=== PATIENT | female | born 1970 | race African-American/Black ===

== ENCOUNTER 2016-07-23 17:34 | Emergency (ER) | payer MEDICAID ==
[2016-07-23 20:57] LABS: APPEARANCE CLEAR (CLEAR); BILIRUBIN NEGATIVE (NEGATIVE); COLOR YELLOW (YELLOW); GLUCOSE 1000 mg/dL (NEGATIVE); KETONE MODERATE mg/dL (NEGATIVE); LEUKOCYTE ESTERASE NEGATIVE (NEGATIVE); NITRITE NEGATIVE (NEGATIVE); PROTEIN NEGATIVE (NEGATIVE); SPECIFIC GRAVITY 1.015 (1.005-1.020); UROBILINOGEN NORMAL (NORMAL)
== END 2016-07-23 22:13 | disposition home or self-care (01) ==
LOC: D.ER 17:34
PROVIDERS: Nurse Practitioner Acute Care
DX: G89.29 Other chronic pain (principal); E11.65 Type 2 diabetes mellitus with hyperglycemia; I10 Essential (primary) hypertension; F17.200 Nicotine dependence, unspecified, uncomplicated

== ENCOUNTER 2016-10-24 05:21 | Emergency (ER) | payer MEDICARE, MEDICAID ==
[2016-10-24 06:19] LABS: BASOPHILS 0.4 % (0-2); EOSINOPHILS 1.1 % (0-7); HEMATOCRIT 45.9 % (36.0-48.0); HEMOGLOBIN 16.1 g/dL (12-16); LYMPHOCYTES 50.5 % (15-50); MCH 30.6 pg (26.0-34.0); MCHC 35.1 g/dL (31.0-37.0); MCV 87.1 fL (80.0-100.0); MEAN PLATELET VOLUME 10.8 fL (7.4-10.4); MONOCYTES 6.4 % (2-11); NEUTROPHILS 41.6 % (40-80); PLATELET COUNT 248 10x3/uL (130-400); RBC 5.27 10x6/uL (4.00-5.40); RDW 12.6 % (11.5-14.5); WBC 5.6 10x3/uL (4.8-10.8)
[2016-10-24 06:31] LABS: KETONE - SERUM NEGATIVE (NEGATIVE)
[2016-10-24 06:40] LABS: ALBUMIN 3.5 g/dL (3.4-5.0); ALKALINE PHOSPHATASE 183 U/L (46-116); ALT (SGPT) 20 U/L (10-68); CALC OSMOLALITY 287 mosm/kg (275-300); CALCIUM 9.7 mg/dL (8.5-10.1); CARBON DIOXIDE 26.6 mmol/L (21.0-32.0); CHLORIDE - SERUM 103 mmol/L (98-107); CREATININE - SERUM 0.8 mg/dL (0.6-1.3); MAGNESIUM - SERUM 1.6 mg/dL (1.8-2.4); POTASSIUM - SERUM 4.1 mmol/L (3.5-5.1); PROTEIN - SERUM 7.3 g/dL (6.4-8.2); SODIUM 138 mmol/L (136-145); UREA NITROGEN 11 mg/dL (7-18); eGFR NON AFRICAN AMERICAN 82 mL/min (90-120)
[2016-10-24 06:41] LABS: GLUCOSE 340 mg/dL (74-106)
== END 2016-10-24 07:13 | disposition home or self-care (01) ==
LOC: EDBD 05:21 → D.ER 05:21
PROVIDERS: Emergency Medicine
DX: E11.65 Type 2 diabetes mellitus with hyperglycemia (principal); Z79.4 Long term (current) use of insulin; M79.1 Myalgia; F17.200 Nicotine dependence, unspecified, uncomplicated; I10 Essential (primary) hypertension

== ENCOUNTER 2016-10-25 15:06 | Emergency (ER) | payer MEDICARE, MEDICAID | END 2016-10-25 18:24 | disposition home or self-care (01) | LOC: D.ER 15:06 | DX: S39.012A Strain of muscle, fascia and tendon of lower back, initial encounter (principal); X58.XXXA Exposure to other specified factors, initial encounter; Y93.89 Activity, other specified; Y92.89 Other specified places as the place of occurrence of the external cause; M54.5 Low back pain; E11.9 Type 2 diabetes mellitus without complications; I10 Essential (primary) hypertension; F17.200 Nicotine dependence, unspecified, uncomplicated ==

== ENCOUNTER 2016-10-26 13:55 | Emergency (ER) | payer MEDICARE, MEDICAID | END 2016-10-26 17:29 | disposition home or self-care (01) | LOC: D.ER 13:55 | DX: S39.012A Strain of muscle, fascia and tendon of lower back, initial encounter (principal); X58.XXXA Exposure to other specified factors, initial encounter; Y93.89 Activity, other specified; Y92.89 Other specified places as the place of occurrence of the external cause; E11.9 Type 2 diabetes mellitus without complications; I10 Essential (primary) hypertension; F17.200 Nicotine dependence, unspecified, uncomplicated ==

== ENCOUNTER 2017-04-14 14:29 | Emergency (ER) | payer MEDICARE, MEDICAID ==
[2017-04-14 14:56] LABS: APPEARANCE CLEAR (CLEAR); COLOR YELLOW (YELLOW); GLUCOSE 1000 mg/dL (NEGATIVE); KETONE NEGATIVE (NEGATIVE); NITRITE NEGATIVE (NEGATIVE); PROTEIN NEGATIVE (NEGATIVE); UROBILINOGEN NORMAL (NORMAL)
[2017-04-14 14:57] LABS: BILIRUBIN NEGATIVE (NEGATIVE)
[2017-04-14 15:30] LABS: BASOPHILS 0.4 % (0-2); EOSINOPHILS 1.3 % (0-7); HEMATOCRIT 46.3 % (36.0-48.0); HEMOGLOBIN 16.4 g/dL (12-16); IMMATURE GRANULOCYTES 0.2 % (0-5); LYMPHOCYTES 39.1 % (15-50); MCHC 35.4 g/dL (31.0-37.0); MCV 87.5 fL (80.0-100.0); MEAN PLATELET VOLUME 10.6 fL (7.4-10.4); MONOCYTES 8.4 % (2-11); NEUTROPHILS 50.6 % (40-80); PLATELET COUNT 224 10x3/uL (130-400); RBC 5.29 10x6/uL (4.00-5.40); RDW 12.5 % (11.5-14.5); WBC 4.7 10x3/uL (4.8-10.8)
[2017-04-14 15:43] LABS: ALBUMIN 3.3 g/dL (3.4-5.0); ALKALINE PHOSPHATASE 207 U/L (46-116); ALT (SGPT) 24 U/L (10-68); AMYLASE - SERUM 34 U/L (25-115); BILIRUBIN - TOTAL 0.24 mg/dL (0.2-1.3); CALC OSMOLALITY 286 mosm/kg (275-300); CALCIUM 9.3 mg/dL (8.5-10.1); CARBON DIOXIDE 25.4 mmol/L (21.0-32.0); CHLORIDE - SERUM 99 mmol/L (98-107); CREATININE - SERUM 0.9 mg/dL (0.6-1.3); LIPASE 118 U/L (73-393); POTASSIUM - SERUM 4.1 mmol/L (3.5-5.1); PROTEIN - SERUM 6.9 g/dL (6.4-8.2); SODIUM 132 mmol/L (136-145); UREA NITROGEN 14 mg/dL (7-18); eGFR NON AFRICAN AMERICAN 72 mL/min (90-120)
[2017-04-14 15:52] LABS: GLUCOSE 478 mg/dL (74-106)
[2017-04-14 16:01] LABS: KETONE - SERUM NEGATIVE (NEGATIVE)
== END 2017-04-14 16:24 | disposition left against medical advice (07) ==
LOC: D.ER 14:29
PROVIDERS: Emergency Medicine
DX: R10.30 Lower abdominal pain, unspecified (principal)

== ENCOUNTER → 2017-04-14 17:08 | Emergency (ER) | payer MEDICARE, MEDICAID | END | disposition home or self-care (01) | LOC: D.ER 17:08 | DX: E11.65 Type 2 diabetes mellitus with hyperglycemia (principal); F17.200 Nicotine dependence, unspecified, uncomplicated ==

== ENCOUNTER 2017-06-10 05:10 | Emergency (ER) | payer MEDICARE, MEDICAID | END 2017-06-10 07:25 | disposition home or self-care (01) | LOC: D.ER 05:10 | DX: L03.213 Periorbital cellulitis (principal); I10 Essential (primary) hypertension; F17.200 Nicotine dependence, unspecified, uncomplicated ==

== ENCOUNTER 2017-07-11 11:54 | Emergency (ER) | payer MEDICARE, MEDICAID ==
[2017-07-11 12:22] LABS: APPEARANCE CLEAR (CLEAR); BILIRUBIN NEGATIVE (NEGATIVE); COLOR STRAW (YELLOW); GLUCOSE 1000 mg/dL (NEGATIVE); KETONE NEGATIVE (NEGATIVE); NITRITE NEGATIVE (NEGATIVE); PROTEIN NEGATIVE (NEGATIVE); SPECIFIC GRAVITY 1.015 (1.005-1.020); UROBILINOGEN NORMAL (NORMAL)
== END 2017-07-11 12:47 | disposition home or self-care (01) ==
LOC: D.ER 11:54
PROVIDERS: Family Medicine
DX: M54.5 Low back pain (principal); G89.29 Other chronic pain; I10 Essential (primary) hypertension

== ENCOUNTER 2017-07-23 18:42 | Emergency (ER) | payer MEDICARE, MEDICAID ==
[2017-07-23 19:39] LABS: HEMATOCRIT 46.9 % (36.0-48.0); HEMOGLOBIN 16.6 g/dL (12-16); MCH 31.1 pg (26.0-34.0); MCHC 35.4 g/dL (31.0-37.0); MEAN PLATELET VOLUME 10.7 fL (7.4-10.4); PLATELET COUNT 224 10x3/uL (130-400); RBC 5.33 10x6/uL (4.00-5.40); RDW 12.5 % (11.5-14.5); WBC 5.5 10x3/uL (4.8-10.8)
[2017-07-23 19:52] LABS: KETONE - SERUM NEGATIVE (NEGATIVE)
[2017-07-23 20:01] LABS: ALBUMIN 3.4 g/dL (3.4-5.0); ALKALINE PHOSPHATASE 207 U/L (46-116); ALT (SGPT) 14 U/L (10-68); APPEARANCE CLEAR (CLEAR); BILIRUBIN NEGATIVE (NEGATIVE); BILIRUBIN - TOTAL 0.27 mg/dL (0.2-1.3); CALCIUM 9.1 mg/dL (8.5-10.1); CARBON DIOXIDE 25.3 mmol/L (21.0-32.0); CHLORIDE - SERUM 96 mmol/L (98-107); COLOR YELLOW (YELLOW); CREATININE - SERUM 1.3 mg/dL (0.6-1.3); GLUCOSE 1000 mg/dL (NEGATIVE); KETONE NEGATIVE (NEGATIVE); NITRITE NEGATIVE (NEGATIVE); POTASSIUM - SERUM 4.3 mmol/L (3.5-5.1); PROTEIN NEGATIVE (NEGATIVE); PROTEIN - SERUM 7.4 g/dL (6.4-8.2); SODIUM 133 mmol/L (136-145); UREA NITROGEN 16 mg/dL (7-18); UROBILINOGEN NORMAL (NORMAL); eGFR NON AFRICAN AMERICAN 47 mL/min (90-120)
[2017-07-23 20:17] LABS: EOSINOPHILS 4 % (0-7); LYMPHOCYTES 59 % (15-50); MONOCYTES 5 % (2-11); NEUTROPHILS 32 % (40-80); PLATELET ESTIMATE NORMAL
[2017-07-23 20:21] LABS: CALC OSMOLALITY 295 mosm/kg (275-300); GLUCOSE 625 mg/dL (74-106)
[2017-07-23 21:15] LABS: MAGNESIUM - SERUM 1.9 mg/dL (1.8-2.4)
[2017-07-23 21:23] LABS: INR 1.01 (0.85-1.17); PROTIME 12.9 SECONDS (11.6-15.0)
[2017-07-24 04:20] LABS: UDS - AMPHET NEGATIVE QUAL (NEGATIVE); UDS - BARB NEGATIVE QUAL (NEGATIVE); UDS - BENZO NEGATIVE QUAL (NEGATIVE); UDS - COCAINE NEGATIVE QUAL (NEGATIVE); UDS - OPIATE NEGATIVE QUAL (NEGATIVE); UDS - PCP NEGATIVE QUAL (NEGATIVE); UDS - THC POSITIVE QUAL (NEGATIVE)
== END 2017-07-23 23:57 | disposition home or self-care (01) ==
LOC: D.ER 18:42
PROVIDERS: Family Medicine; Nurse Practitioner Family
DX: E11.65 Type 2 diabetes mellitus with hyperglycemia (principal); Z79.4 Long term (current) use of insulin; I10 Essential (primary) hypertension